=== PATIENT | male | born 1955 | race Caucasian/White ===

== ENCOUNTER 2018-12-23 09:05 | Emergency (ER) | payer OTHER, SELFPAY ==
[~2018-12-23] VITALS: Ht 177.8 cm; Wt 68.2 kg
[~2018-12-23 09:05] MED LIST: AZIT-12 PO; PRED20TA PO
--- NOTE | 2018-12-23 10:16 | REP ---
Clinical: Trauma. Technique: AP, lateral, bilateral oblique views left hand . Findings: The osseous structures and joint spaces are intact and normal. There is no evidence for acute fracture or dislocation. Surrounding soft tissues are unremarkable. No subcutaneous emphysema or radiodense foreign body. Impression: Generalized age-related changes. No acute fracture or dislocation. Electronically Signed by David Bennett MD 12/23/2018 10:08 A
[2018-12-23] MEDS ORDERED: CLEO300C2 PO (10:19)
[2018-12-23 10:33] VITALS: BP 136/72
== END 2018-12-23 10:35 | disposition home or self-care (01) ==
LOC: M ED 09:05
DX: S60.512A Abrasion of left hand, initial encounter (principal); L08.9 Local infection of the skin and subcutaneous tissue, unspecified; W00.0XXA Fall on same level due to ice and snow, initial encounter; Y92.098 Other place in other non-institutional residence as the place of occurrence of the external cause; F17.200 Nicotine dependence, unspecified, uncomplicated

== ENCOUNTER 2019-03-26 23:34 | Emergency (ER) | payer OTHER ==
[~2019-03-26 23:34] MED LIST changes: +CLEO300C2 PO
--- NOTE | 2019-03-27 00:59 | REPVR ---
EXAM: CT Head Without Contrast EXAM DATE/TIME: 03/26/2019 11:53 PM CLINICAL HISTORY: 63 years old, male; Signs and symptoms; Altered mental status/memory loss; Confusion or disorientation; Additional info: AMS TECHNIQUE: Imaging protocol: Axial computed tomography images of the head without contrast. Radiation optimization: All CT scans at this facility use at least one of these dose optimization techniques: automated exposure control; mA and/or kV adjustment per patient size (includes targeted exams where dose is matched to clinical indication); or iterative reconstruction. COMPARISON: No relevant prior studies available. FINDINGS: Brain: No CT evidence of acute intracranial hemorrhage or acute territorial infarction. No significant mass effect or midline shift. Basal cisterns patent. Ventricles: Normal in size and configuration. Bones/joints: No acute osseous abnormality. Sinuses: Moderate polypoid right maxillary sinus mucosal thickening. Mild ethmoid, left maxillary and left sphenoid sinus mucosal thickening. Mastoid air cells: Grossly unremarkable. Soft tissues: Grossly unremarkable. IMPRESSION: 1. No CT evidence of acute intracranial pathology. 2. Additional findings, as above. Electronically signed by: Branden Martinez On 03/27/2019 00:58:34 AM
--- NOTE | 2019-03-27 01:02 | REPVR ---
EXAM: CT Cervical Spine Without Contrast EXAM DATE/TIME: 03/26/2019 11:53 PM CLINICAL HISTORY: 63 years old, male; Injury or trauma; Fall; Initial encounter; Blunt trauma; Additional info: AMS TECHNIQUE: Imaging protocol: Axial computed tomography images of the cervical spine without contrast. Coronal and sagittal reformatted images were created and reviewed. Radiation optimization: All CT scans at this facility use at least one of these dose optimization techniques: automated exposure control; mA and/or kV adjustment per patient size (includes targeted exams where dose is matched to clinical indication); or iterative reconstruction. COMPARISON: No relevant prior studies available. FINDINGS: Vertebrae: Osteopenia. Straightening of the normal cervical lordosis. Mild dextroscoliosis. Alignment anatomic. Congenital nonunion of the C1 posterior arch. No CT evidence of acute fracture, dislocation or subluxation. Vertebral body heights maintained. Discs/Spinal canal/Neural foramina: Mild multilevel degenerative changes, characterized by disc space narrowing, osteophytosis and uncovertebral and facet joint hypertrophy. Mild multilevel spinal canal and neural foraminal narrowing. Soft tissues: Grossly unremarkable. Lungs: Mild biapical emphysematous changes. IMPRESSION: 1. No CT evidence of acute cervical spine traumatic injury. 2. Additional findings, as above. Electronically signed by: Branden Martinez On 03/27/2019 01:01:57 AM
[2019-03-27 01:15] VITALS: BP 123/77
== END 2019-03-27 01:36 | disposition left against medical advice (07) ==
LOC: M ED 23:34
DX: F10.120 Alcohol abuse with intoxication, uncomplicated (principal); F17.210 Nicotine dependence, cigarettes, uncomplicated
CPT/HCPCS: 36415; 70450; 72125; 99284; G0480

== ENCOUNTER 2020-08-01 20:43 | Inpatient (IN) | payer MEDICAID, OTHER, SELFPAY ==
[~2020-08-01] VITALS: Ht 170.2 cm; Wt 63.6 kg
[2020-08-01 22:28] LABS: HEMATOCRIT 37.6 % (42.0-52.0); HEMOGLOBIN 13.1 g/dl (13.5-17.5); LYMPH # 1.3 10^3/uL (1.5-5.0); LYMPH % 45.1 % (24.0-44.0); MEAN CORPUSCULAR HEMOGLOBIN 32.9 pg (27.0-33.0); MEAN CORPUSCULAR HGB CONC 34.8 g/dl (32.0-36.5); MEAN CORPUSCULAR VOLUME 94.5 fl (80.0-96.0); MONO # 0.3 10^3/uL (0.0-0.8); MONO % 10.8 % (0.0-5.0); NEUTROPHILS # 1.2 10^3/uL (1.5-8.5); NEUTROPHILS % 41.4 % (36.0-66.0); PLATELET COUNT, AUTOMATED 148 10^3/uL (150-450); RED BLOOD COUNT 3.98 10^6/uL (4.30-6.10)
--- NOTE | 2020-08-01 22:33 | REPVR ---
PROCEDURE INFORMATION: Exam: XR Chest, 1 View Exam date and time: 08/01/2020 9:47 PM Age: 64 years old Clinical indication: Screening exam; Pre-operative exam; Other: Pre op; Additional info: Fall TECHNIQUE: Imaging protocol: XR of the chest Views: 1 view. COMPARISON: NE Chest, 2 view PA, Lat 06/02/2018 10:29 PM FINDINGS: Lungs: Unremarkable. No consolidation. Pleural space: Unremarkable. No pleural effusion. No pneumothorax. Heart/Mediastinum: Unremarkable. No cardiomegaly. Bones/joints: Unremarkable. IMPRESSION: No acute findings. Electronically signed by: Demar Kwon On 08/01/2020 22:32:53 PM
--- NOTE | 2020-08-01 22:34 | REPVR ---
PROCEDURE INFORMATION: Exam: XR Left Hip with Pelvis when Performed Exam date and time: 08/01/2020 9:21 PM Age: 64 years old Clinical indication: Hip pain; Left hip TECHNIQUE: Imaging protocol: XR Left hip with pelvis when performed. Views: 2 or 3 views. COMPARISON: No relevant prior studies available. FINDINGS: Bones/joints: Acute fracture of the left femoral neck. The femoral head remains in the acetabulum. Soft tissues: Unremarkable. IMPRESSION: Acute fracture of the left femoral neck. Electronically signed by: Demar Kwon On 08/01/2020 22:34:21 PM
[2020-08-01 22:56] LABS: ALBUMIN 3.8 GM/DL (3.2-5.2); ALT/SGPT 60 U/L (12-78); BILIRUBIN,DIRECT < 0.1 MG/DL (0.0-0.2); BILIRUBIN,TOTAL 0.3 MG/DL (0.2-1.0); ETHYL ALCOHOL (ETHANOL) 0.326 % (0.000-0.010); TOTAL PROTEIN 7.6 GM/DL (6.4-8.2)
[2020-08-01] MEDS ORDERED: MOM 30ML SUSPENSION UDC PO PRN (23:15)
--- NOTE | 2020-08-01 23:29 | HPEPDOC ---
[facility] Medical History & Physical Date of Admission Aug 01, 2020 Date of Service: Aug 01, 2020 History and Physical CHIEF COMPLAINT: Fall on hip HISTORY OF PRESENT ILLNESS: 64-year-old male history of hypertension is brought to the emergency department because he was intoxicated and tripped and fell on his hip on the sidewalk. Hip pelvis x-ray in the ED shows left femoral neck fracture. Dr. Pepper orthopedics p[employer] security consultant today was consulted and plans to take him to the OR in the morning. Patient states he is in 5 out of 10 discomfort around his left hip. Denies any pain elsewhere. Patient was seen in the ED he appeared to still be intoxicated and answered some questions but fairly poorly. He did tell me he has hypertension but denied any other past medical problems and states he doesn't take any medications nor fol low-up with a primary care doctor. He states he drinks alcohol every other day and sometimes a pack or 2 at a time. He states he gets the shakes when he stops drinking but has never been brought to the hospital because of alcohol withdrawal. PAST MEDICAL HISTORY: Hypertension PAST SURGICAL HISTORY: Denies any SOCIAL HISTORY: Denies use of any illicit drugs Smokes one pack per day of tobacco Drinks alcohol every other day sometimes 1-2 packs at a time currently intoxicated in the ED FAMILY HISTORY: Patient unaware of his family has any medical problems ALLERGIES: Please see below. REVIEW OF SYSTEMS: Many questions on ROS are limited because patient is intoxicated and does not answer many of the questions appropriately Constitutional: Admits he's just been drinking alcohol over the past few hours Eyes: No acute blurred vision HENT: No complaints of headache or sore throat Cadiovascular: No Chest pain or palpitations Pulm: No SOB or cough Gastrointestinal: No N/V, no abdominal pain. Genitourinary: Musculoskeletal: Left-sided hip pain but no other bony pain elsewhere Skin: No rash or jaundice Neurological: No weakness. HOME MEDICATIONS: Please see below. PHYSICAL EXAMINATION: Constitutional: Awake but appears to be intoxicated, in no apparent distress ENT: Sclera are clear. Mucosa is moist. Respiratory: Lungs CTA bilaterally. No respiratory distress. No use of accessory muscles. Cardiovascular: RRR S1 and S2 are normal, no murmur Gastrointestinal: Abdomen is soft, non distended, non tender, BS present. Musculoskeletal: No edema. Left hip was not examined due to pain. However patient appears comfortable Neurologic: No focal neurological deficit. Mental Status: A&O x3 Skin: Warm, dry LABORATORY DATA: See below. IMAGING: X-ray of hip/pelvis shows fracture of the left femoral neck MICROBIOLOGY: Please see below. ASSESSMENT/PLAN # Left femoral neck fracture: ortho consulted dr Pepper to take him to OR int he AM. NPO, coags for am. X-ray of hip/pelvis shows fracture of the left femoral neck. Pain control [place], morphine breakthrough. # ETOH abuse: currently intoxicated. Ativan PRN per ciwa protocol. thiamine, folic acid, MVI. Fall, seizure precautions. # HTN: started him on amlodipine. Pain control. Monitor and titrate. # DVT prophylaxis: SCDs for now for surgery. A Yousef Hospitalist Vital Signs Vital Signs Date Time Temp Pulse Resp B/P (MAP) Pulse Ox O2 Delivery O2 Flow Rate FiO2 08/01/20 21:12 98.2 78 15 175/81 (112) 97 Room Air Laboratory Data Labs 24H Laboratory Tests 2 08/01/20 22:03: Immature Granulocyte % (Auto) 0.7, Neutrophils (%) (Auto) 41.4, Lymphocytes (%) (Auto) 45.1H, Monocytes (%) (Auto) 10.8H, Eosinophils (%) (Auto) 1.0, Basophils (%) (Auto) 1.0, Neutrophils # (Auto) 1.2L, Lymphocytes # (Auto) 1.3L, Monocytes # (Auto) 0.3, Eosinophils # (Auto) 0.0, Basophils # (Auto) 0.0, Nucleated Red Blood Cells % (auto) 0.0, Total Bilirubin 0.3, Direct Bilirubin < 0.1, Aspartate Amino Transf (AST/SGOT) 66H, Alanine Aminotransferase (ALT/SGPT) 60, Alkaline Phosphatase 82, Total Protein 7.6, Albumin 3.8, Albumin/Globulin Ratio 1.0, Ethyl Alcohol Level 0.326H, Coronavirus (COVID-19)(PCR) NEGATIVE 08/01/20 22:11: POC Glucose (Misc Panel) 76, POC Sodium (Misc Panel) 125L, POC Potassium (Misc Panel) 5.3H, POC Chloride (Misc Panel) 90L, POC Total CO2 (Misc Panel) 24.0, POC Blood Urea Nitrogen (Misc Panel 3L, POC Ionized Calcium (Misc Panel) 3.8L, POC Creatinine (Misc Panel) 1.1, POC Hematocrit (Misc Panel) 43.0 CBC/BMP Laboratory Tests 08/01/20 22:03 Home Medications No Active Prescriptions or Reported Meds Allergies Coded Allergies: No Known Allergies (Unverified , 06/02/18) A-FIB/CHADSVASC A-FIB History Current/History of A-Fib/PAF?: No ALAINA THIBODEAUX MD Aug 01, 2020 23:13
[2020-08-01] MEDS ORDERED: LORazepam 2 MG TAB PO PRN (23:30)
[2020-08-01] MEDS ORDERED: amLODIPine 5 MG TAB PO ONE (23:30)
[2020-08-01] MEDS ORDERED: SOD POLYSTYRENE SULFONATE SUSP 15 GM/60 ML UD PO ONE (23:45)
[2020-08-02] VITALS (10 sets, daily range): BP systolic 118–165; BP diastolic 70–86
[2020-08-02] MEDS: MORPHINE 2 MG/ML 1ML VIAL (J2270) IV PRN ×3 (01:26→12:42)
[2020-08-02] MEDS: THIAMINE 100 MG TAB PO SCH ×3 (01:27→21:49)
[2020-08-02] MEDS: NS 1,000 ML IV SCH ×2 (01:43→09:03)
[2020-08-02 05:55] LABS: HEMATOCRIT 36.1 % (42.0-52.0); HEMOGLOBIN 12.6 g/dl (13.5-17.5); MEAN CORPUSCULAR HGB CONC 34.9 g/dl (32.0-36.5); MEAN CORPUSCULAR VOLUME 94.5 fl (80.0-96.0); PLATELET COUNT, AUTOMATED 144 10^3/uL (150-450); RED BLOOD COUNT 3.82 10^6/uL (4.30-6.10); WHITE BLOOD COUNT 4.7 10^3/uL (4.0-10.0)
[2020-08-02] MEDS ORDERED: ceFAZolin SOD 2 GM in IV 1 EA IV SCH (06:00)
[2020-08-02 06:05] LABS: INR 0.96
[2020-08-02 06:22] LABS: ALBUMIN 3.5 GM/DL (3.2-5.2); ALT/SGPT 58 U/L (12-78); BILIRUBIN,TOTAL 0.3 MG/DL (0.2-1.0); BLOOD UREA NITROGEN 5 MG/DL (7-18); CALCIUM LEVEL 8.3 MG/DL (8.8-10.2); CARBON DIOXIDE LEVEL 23 MEQ/L (21-32); CHLORIDE LEVEL 95 MEQ/L (98-107); CREATININE FOR GFR 0.58 MG/DL (0.70-1.30); ETHYL ALCOHOL (ETHANOL) 0.168 % (0.000-0.010); GLOMERULAR FILTRATION RATE > 60.0 (>49); GLUCOSE, FASTING 70 MG/DL (70-100); MAGNESIUM LEVEL 2.1 MG/DL (1.8-2.4); POTASSIUM SERUM 4.3 MEQ/L (3.5-5.1); SODIUM LEVEL 128 MEQ/L (136-145); TOTAL PROTEIN 7.2 GM/DL (6.4-8.2)
[2020-08-02] MEDS ORDERED: OLANZapine INTRAMUSCULAR 10MG VIAL IM PRN (07:45)
[2020-08-02] MEDS: OXAZEPAM 15 MG CAP PO SCH ×3 (09:03→21:49)
[2020-08-02] MEDS: MULTIVITAMINS/MINERALS THERAP 1 TAB PO SCH (09:03)
[2020-08-02] MEDS: FOLIC ACID 1 MG TAB PO SCH (09:03)
[2020-08-02] MEDS: amLODIPine 5 MG TAB PO SCH (09:03)
--- NOTE | 2020-08-02 11:05 | IPNPDOC ---
Text Note Date of Service The patient was seen on 08/02/20. NOTE Subjective: Patient is sober now with no signs of withdrawal. Does not have any complaints at present except for hip pain and spasm on minor movement. PHYSICAL EXAMINATION: Vitals: As Below. Constitutional: Awake but appears to be intoxicated, in no apparent distress HEENT: Sclera are clear. Mucosa is moist. NC/AT Respiratory: Lungs CTA bilaterally. No respiratory distress. No use of accessory muscles. Cardiovascular: RRR S1 and S2 are normal, no murmur/ rub or gallop Gastrointestinal: Abdomen is soft, non distended, non tender, BS present. Musculoskeletal: No edema. Left hip was not examined due to pain. However patient appears comfortable, left leg externally rotated Neurologic: No focal neurological deficit. Mental Status: A&O x3 Skin: Warm, dry LABORATORY DATA: See below. IMAGING: X-ray of hip/pelvis shows fracture of the left femoral neck ASSESSMENT/PLAN 64-year-old male history of hypertension is brought to the emergency department because he was intoxicated and tripped and fell on his hip on the sidewalk. Hip pelvis x-ray in the ED shows left femoral neck fracture. Medical clearance: EKG normal sinus rhythm. Alcohol level still at 0.168 will recheck in the pm. No cardiac history, no chf, no CVA/TIA history, No CKD, no DM. Pateitn is low cardiac risk for the proposed procedure. Patient medically optimized for the procedure provided anesthesia is OK with his alcohol level. Left femoral neck fracture: ortho consulted dr Pepper to take him to OR today NPO, Pain control [place], morphine breakthrough. Hyponatremia Beer potomania, improving with NS ETOH abuse: Ativan and olanzapine PRN , ciwa protocol. thiamine, folic acid, MVI. Fall, seizure precautions. HTN: started on amlodipine. DVT prophylaxis SCDs for now for surgery. VS,Fishbone, I+O VS, Fishbone, I+O Laboratory Tests 08/01/20 22:03 08/02/20 05:26 Vital Signs Date Time Temp Pulse Resp B/P (MAP) Pulse Ox O2 Delivery O2 Flow Rate FiO2 08/02/20 09:03 89 138/69 08/02/20 06:48 16 96 Room Air 08/02/20 05:49 98.7 PENG PERRY MD Aug 02, 2020 11:05
[2020-08-02] MEDS: MAGNESIUM OXIDE 400 MG TAB (MAG-OX) PO SCH (11:56)
[2020-08-02] MEDS: NORCO, ANEXSIA 5/325MG TABLET (HYDROcodone/ACETAMINOPHEN) PO PRN ×2 (15:34→21:49)
[2020-08-02] MEDS ORDERED: propofoL 200 MG/20 ML VIAL As Ordered ONE (15:47)
[2020-08-02] MEDS ORDERED: dexameTHASONE 4 MG/ML 1ML VIAL (J1100 PER 1MG) As Ordered ONE (15:47)
[2020-08-02] MEDS ORDERED: ACETAMINOPHEN 1000MG 100ML IV BTL (OFIRMEV) (J0131 PER 10MG) As Ordered ONE (15:47)
[2020-08-02] MEDS ORDERED: ROCURONIUM BROMIDE 50 MG/5 ML VIAL As Ordered ONE (15:47)
[2020-08-02] MEDS ORDERED: ONDANSETRON 4MG/2ML VIAL As Ordered ONE (15:47)
[2020-08-02] MEDS ORDERED: LIDOCAINE 2% 100MG/5ML SDV (FOR ANES.) As Ordered ONE (15:47)
[2020-08-02] MEDS ORDERED: SUGAMMADEX SODIUM 500 MG/5 ML VIAL (BRIDION) As Ordered ONE (15:47)
[2020-08-02] MEDS ORDERED: KETOROLAC 60MG 2ML VIAL As Ordered ONE (15:47)
[2020-08-02] MEDS ORDERED: MIDAZOLAM INJ 2MG/2ML VIAL (J2250 PER 1MG) As Ordered ONE (15:48)
[2020-08-02] MEDS ORDERED: fentaNYL 100 MCG/2 ML INJECTION (J3010) As Ordered ONE ×3 (15:48→19:22)
[2020-08-02] MEDS ORDERED: LIDOCAINE 5% OINT 30 GM As Ordered ONE (15:57)
[2020-08-02] MEDS ORDERED: ceFAZolin 1GM VIAL (J0690 PER 500MG) As Ordered ONE ×3 (16:44→17:46)
[2020-08-02] MEDS ORDERED: EPINEPHrine INJ 1 MG/ML 1ML AMP As Ordered ONE (16:46)
[2020-08-02] MEDS ORDERED: TRANEXAMIC ACID 100 MG/ML 10ML VIAL As Ordered ONE (17:52)
[2020-08-02] MEDS ORDERED: HYDROmorphone HCL 2 MG/ML 1ML VIAL (J1170) As Ordered ONE (18:04)
[2020-08-02] MEDS ORDERED: BUPIVACAINE HCL 0.25% 30ML VIAL As Ordered ONE (18:39)
[2020-08-02] MEDS ORDERED: LABETALOL 100MG/20ML VIAL As Ordered ONE (19:22)
--- NOTE | 2020-08-02 19:35 | ECGEPIP ---
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
[2020-08-02] MEDS ORDERED: oxyCODONE 5MG TAB As Ordered ONE (19:47)
[2020-08-02] MEDS ORDERED: ONDANSETRON 4MG/2ML VIAL IV PRN (20:45)
[2020-08-02] MEDS ORDERED: LR 1,000 ML IV SCH (20:45)
[2020-08-03] VITALS (7 sets, daily range): BP systolic 110–141; BP diastolic 59–78
[2020-08-03] MEDS: ceFAZolin SOD 2 GM in IV 1 EA IV SCH ×2 (01:15→09:27)
[2020-08-03] MEDS: OXAZEPAM 15 MG CAP PO SCH ×3 (05:12→20:29)
[2020-08-03] MEDS: NORCO, ANEXSIA 5/325MG TABLET (HYDROcodone/ACETAMINOPHEN) PO PRN (05:13)
[2020-08-03 06:14] LABS: HEMATOCRIT 31.2 % (42.0-52.0); HEMOGLOBIN 10.9 g/dl (13.5-17.5); LYMPH # 0.3 10^3/uL (1.5-5.0); LYMPH % 6.4 % (24.0-44.0); MEAN CORPUSCULAR HEMOGLOBIN 33.7 pg (27.0-33.0); MEAN CORPUSCULAR HGB CONC 34.9 g/dl (32.0-36.5); MEAN CORPUSCULAR VOLUME 96.6 fl (80.0-96.0); MONO # 0.4 10^3/uL (0.0-0.8); MONO % 7.4 % (0.0-5.0); NEUTROPHILS # 4.4 10^3/uL (1.5-8.5); NEUTROPHILS % 85.8 % (36.0-66.0); PLATELET COUNT, AUTOMATED 118 10^3/uL (150-450); RED BLOOD COUNT 3.23 10^6/uL (4.30-6.10); WHITE BLOOD COUNT 5.1 10^3/uL (4.0-10.0)
[2020-08-03 06:48] LABS: BLOOD UREA NITROGEN 10 MG/DL (7-18); CALCIUM LEVEL 8.5 MG/DL (8.8-10.2); CARBON DIOXIDE LEVEL 28 MEQ/L (21-32); CHLORIDE LEVEL 99 MEQ/L (98-107); CREATININE FOR GFR 0.74 MG/DL (0.70-1.30); GLOMERULAR FILTRATION RATE > 60.0 (>49); GLUCOSE, FASTING 197 MG/DL (70-100); SODIUM LEVEL 131 MEQ/L (136-145)
[2020-08-03] MEDS: MAGNESIUM OXIDE 400 MG TAB (MAG-OX) PO SCH (09:25)
[2020-08-03] MEDS: THIAMINE 100 MG TAB PO SCH ×2 (09:25→20:29)
[2020-08-03] MEDS: amLODIPine 5 MG TAB PO SCH (09:25)
[2020-08-03] MEDS: FOLIC ACID 1 MG TAB PO SCH (09:25)
[2020-08-03] MEDS: MULTIVITAMINS/MINERALS THERAP 1 TAB PO SCH (09:25)
[2020-08-03] MEDS: MIRALAX *UNIT DOSE* 17GM PACKET PO SCH (09:26)
--- NOTE | 2020-08-03 11:04 | IPNPDOC ---
Text Note Date of Service The patient was seen on 08/03/20. NOTE Subjective: Patient awake and aler, no signs of withdrawal, working with PT, Had Surgery yesterday. PHYSICAL EXAMINATION: Vitals: As Below. Constitutional: Sitting by the side of bed in no distress. HEENT: Sclera are clear. Mucosa is moist. NC/AT Respiratory: Lungs CTA bilaterally. No respiratory distress. No use of accessory muscles. Cardiovascular: RRR S1 and S2 are normal, no murmur/ rub or gallop Gastrointestinal: Abdomen is soft, non distended, non tender, BS present. Musculoskeletal: No edema. Neurologic: No focal neurological deficit. Mental Status: A&O x3 Skin: Warm, dry LABORATORY DATA: See below. IMAGING: X-ray of hip/pelvis shows fracture of the left femoral neck ASSESSMENT/PLAN 64-year-old male history of hypertension is brought to the emergency department because he was intoxicated and tripped and fell on his hip on the sidewalk. Hip pelvis x-ray in the ED shows left femoral neck fracture. Left femoral neck fracture: s/p mechanical fall in drunken state s/p ORIF on 08/02/20 Hyponatremia Beer potomania, improving ETOH abuse: Ativan and olanzapine PRN , ciwa protocol. thiamine, folic acid, MVI. Fall, seizure precautions. Serax. HTN: started on amlodipine. Smoking counselled about quitting offered nicotine patch to help DVT prophylaxis SCDs for now for surgery. VS,Fishbone, I+O VS, Fishbone, I+O Laboratory Tests 08/03/20 05:47 Vital Signs Date Time Temp Pulse Resp B/P (MAP) Pulse Ox O2 Delivery O2 Flow Rate FiO2 08/03/20 09:25 60 138/78 08/03/20 05:43 16 96 Nasal Cannula 2.0 08/03/20 02:00 98.2 I&O- Last 24 Hours up to 6 AM 08/03/20 06:00 Intake Total 1530 ml Output Total 600 ml Balance 930 ml PENG PERRY MD Aug 03, 2020 11:04
[2020-08-03] MEDS: NICOTINE 14 MG/24 HR TRANSDERMAL TD SCH (12:00)
[2020-08-03] MEDS: ACETAMINOPHEN TAB 650MG DOSE (2X325MG) PO PRN ×2 (14:09→20:29)
[2020-08-03] MEDS: RIVAROXABAN 10 MG TAB (XARELTO) PO SCH (17:25)
[2020-08-03] MEDS: PERCOCET 5MG/325MG TAB PO PRN (18:40)
[2020-08-04] MEDS: PERCOCET 5MG/325MG TAB PO PRN ×5 (00:06→18:03)
[2020-08-04 05:19] LABS: BASO % 0.2 % (0.0-1.0); EOS % 0.2 % (0.0-3.0); HEMATOCRIT 28.1 % (42.0-52.0); HEMOGLOBIN 9.6 g/dl (13.5-17.5); LYMPH # 0.9 10^3/uL (1.5-5.0); LYMPH % 16.6 % (24.0-44.0); MEAN CORPUSCULAR HEMOGLOBIN 33.3 pg (27.0-33.0); MEAN CORPUSCULAR HGB CONC 34.2 g/dl (32.0-36.5); MEAN CORPUSCULAR VOLUME 97.6 fl (80.0-96.0); MONO # 0.4 10^3/uL (0.0-0.8); MONO % 7.2 % (0.0-5.0); NEUTROPHILS # 4.2 10^3/uL (1.5-8.5); NEUTROPHILS % 75.3 % (36.0-66.0); PLATELET COUNT, AUTOMATED 104 10^3/uL (150-450); RED BLOOD COUNT 2.88 10^6/uL (4.30-6.10); WHITE BLOOD COUNT 5.5 10^3/uL (4.0-10.0)
[2020-08-04] MEDS: OXAZEPAM 15 MG CAP PO SCH ×3 (05:24→21:03)
[2020-08-04 05:38] LABS: BLOOD UREA NITROGEN 5 MG/DL (7-18); CALCIUM LEVEL 8.1 MG/DL (8.8-10.2); CARBON DIOXIDE LEVEL 29 MEQ/L (21-32); CHLORIDE LEVEL 100 MEQ/L (98-107); CREATININE FOR GFR 0.58 MG/DL (0.70-1.30); GLOMERULAR FILTRATION RATE > 60.0 (>49); GLUCOSE, FASTING 109 MG/DL (70-100); POTASSIUM SERUM 3.2 MEQ/L (3.5-5.1); SODIUM LEVEL 134 MEQ/L (136-145)
[2020-08-04 06:00] VITALS: BP_SYST 132; BP_SYST 134; BP_DIAS 62; BP_DIAS 68
[2020-08-04 08:11] LABS: MAGNESIUM LEVEL 1.8 MG/DL (1.8-2.4)
[2020-08-04] MEDS: MAGNESIUM OXIDE 400 MG TAB (MAG-OX) PO SCH (08:17)
[2020-08-04] MEDS: MIRALAX *UNIT DOSE* 17GM PACKET PO SCH (08:17)
[2020-08-04] MEDS: MULTIVITAMINS/MINERALS THERAP 1 TAB PO SCH (08:17)
[2020-08-04] MEDS: THIAMINE 100 MG TAB PO SCH (08:17)
[2020-08-04] MEDS: FOLIC ACID 1 MG TAB PO SCH (08:17)
[2020-08-04] MEDS: amLODIPine 5 MG TAB PO SCH (08:18)
[2020-08-04] MEDS: NICOTINE 14 MG/24 HR TRANSDERMAL TD SCH (08:31)
[2020-08-04] MEDS ORDERED: POTASSIUM CHLORIDE 10 MEQ SR TABLET PO ONE (09:00)
--- NOTE | 2020-08-04 11:22 | IPNPDOC ---
Text Note Date of Service The patient was seen on 08/04/20. NOTE Subjective: Patient awake and alert, no signs of withdrawal. Likes to sleep in the morning says does not sleep at night. PHYSICAL EXAMINATION: Vitals: As Below. Constitutional: Sitting by the side of bed in no distress. HEENT: Sclera are clear. Mucosa is moist. NC/AT Respiratory: Lungs CTA bilaterally. No respiratory distress. No use of accessory muscles. Cardiovascular: RRR S1 and S2 are normal, no murmur/ rub or gallop Gastrointestinal: Abdomen is soft, non distended, non tender, BS present. Musculoskeletal: No edema. Neurologic: No focal neurological deficit. Mental Status: A&O x3 Skin: Warm, dry LABORATORY DATA: See below. IMAGING: X-ray of hip/pelvis shows fracture of the left femoral neck ASSESSMENT/PLAN 64-year-old male history of hypertension is brought to the emergency department because he was intoxicated and tripped and fell on his hip on the sidewalk. Hip pelvis x-ray in the ED shows left femoral neck fracture. Left femoral neck fracture: s/p mechanical fall in drunken state s/p ORIF on 08/02/20 Hyponatremia Beer potomania, improving Hypokalemia replaced ETOH abuse: Ativan and olanzapine PRN , ciwa protocol. thiamine, folic acid, MVI. Fall, seizure precautions. Serax. HTN: started on amlodipine. Smoking counselled about quitting offered nicotine patch to help DVT prophylaxis xarelto Dispo: Continue to Rehab. VS,Fishbone, I+O VS, Fishbone, I+O Laboratory Tests 08/04/20 04:47 Vital Signs Date Time Temp Pulse Resp B/P (MAP) Pulse Ox O2 Delivery O2 Flow Rate FiO2 08/04/20 09:01 16 08/04/20 08:18 85 134/68 08/04/20 06:00 99.2 95 Room Air 08/03/20 09:00 2.0 I&O- Last 24 Hours up to 6 AM 08/04/20 06:00 Intake Total 2390 ml Output Total 1700 ml Balance 690 ml PENG PERRY MD Aug 04, 2020 11:22
[2020-08-04 14:00] VITALS: BP 122/68
[2020-08-04 15:00] VITALS: BP 122/68
[2020-08-04] MEDS: RIVAROXABAN 10 MG TAB (XARELTO) PO SCH (18:03)
[2020-08-04] MEDS: ACETAMINOPHEN TAB 650MG DOSE (2X325MG) PO PRN (21:03)
[2020-08-04 22:00] VITALS: BP 138/77
[2020-08-05] MEDS: PERCOCET 5MG/325MG TAB PO PRN ×5 (01:14→18:21)
[2020-08-05] MEDS: OXAZEPAM 15 MG CAP PO SCH ×2 (05:11→18:21)
[2020-08-05 05:46] LABS: BASO % 0.3 % (0.0-1.0); EOS # 0.1 10^3/uL (0.0-0.5); EOS % 0.8 % (0.0-3.0); HEMATOCRIT 29.6 % (42.0-52.0); HEMOGLOBIN 9.8 g/dl (13.5-17.5); LYMPH # 0.8 10^3/uL (1.5-5.0); LYMPH % 12.9 % (24.0-44.0); MEAN CORPUSCULAR HEMOGLOBIN 33.1 pg (27.0-33.0); MEAN CORPUSCULAR HGB CONC 33.1 g/dl (32.0-36.5); MONO # 0.4 10^3/uL (0.0-0.8); MONO % 5.5 % (0.0-5.0); NEUTROPHILS # 5.1 10^3/uL (1.5-8.5); NEUTROPHILS % 79.9 % (36.0-66.0); PLATELET COUNT, AUTOMATED 111 10^3/uL (150-450); RED BLOOD COUNT 2.96 10^6/uL (4.30-6.10); WHITE BLOOD COUNT 6.4 10^3/uL (4.0-10.0)
[2020-08-05 05:56] LABS: BLOOD UREA NITROGEN 7 MG/DL (7-18); CALCIUM LEVEL 8.3 MG/DL (8.8-10.2); CARBON DIOXIDE LEVEL 30 MEQ/L (21-32); CHLORIDE LEVEL 100 MEQ/L (98-107); CREATININE FOR GFR 0.56 MG/DL (0.70-1.30); GLOMERULAR FILTRATION RATE > 60.0 (>49); GLUCOSE, FASTING 101 MG/DL (70-100); POTASSIUM SERUM 3.5 MEQ/L (3.5-5.1); SODIUM LEVEL 133 MEQ/L (136-145)
[2020-08-05 06:00] VITALS: BP 140/76
--- NOTE | 2020-08-05 08:04 | IPNPDOC ---
Text Note Date of Service The patient was seen on 08/05/20. NOTE Subjective: Patient awake and alert, no signs of withdrawal. Working with PT. PHYSICAL EXAMINATION: Vitals: As Below. Constitutional: Sitting by the side of bed in no distress. HEENT: Sclera are clear. Mucosa is moist. NC/AT Respiratory: Lungs CTA bilaterally. No respiratory distress. No use of accessory muscles. Cardiovascular: RRR S1 and S2 are normal, no murmur/ rub or gallop Gastrointestinal: Abdomen is soft, non distended, non tender, BS present. Musculoskeletal: No edema. Neurologic: No focal neurological deficit. Mental Status: A&O x3 Skin: Warm, dry LABORATORY DATA: See below. IMAGING: X-ray of hip/pelvis shows fracture of the left femoral neck ASSESSMENT/PLAN 64-year-old male history of hypertension is brought to the emergency department because he was intoxicated and tripped and fell on his hip on the sidewalk. Hip pelvis x-ray in the ED shows left femoral neck fracture. Left femoral neck fracture: s/p mechanical fall in drunken state s/p ORIF on 08/02/20 Hyponatremia Beer potomania, improving Hypokalemia replaced ETOH abuse: Ativan and olanzapine PRN , ciwa protocol. thiamine, folic acid, MVI. Fall, seizure precautions. Serax. HTN: started on amlodipine. Smoking counselled about quitting offered nicotine patch to help DVT prophylaxis xarelto Dispo: Continue to Rehab. VS,Fishbone, I+O VS, Fishbone, I+O Laboratory Tests 08/05/20 05:18 Vital Signs Date Time Temp Pulse Resp B/P (MAP) Pulse Ox O2 Delivery O2 Flow Rate FiO2 08/05/20 06:00 100.2 87 20 140/76 (97) 97 Room Air 08/03/20 09:00 2.0 I&O- Last 24 Hours up to 6 AM 08/05/20 06:00 Intake Total 4330 ml Output Total 1600 ml Balance 2730 ml PENG PERRY MD Aug 05, 2020 08:04
[2020-08-05] MEDS ORDERED: POTASSIUM CHLORIDE 10 MEQ SR TABLET PO ONE (09:00)
[2020-08-05] MEDS: NICOTINE 14 MG/24 HR TRANSDERMAL TD SCH (10:03)
[2020-08-05] MEDS: MIRALAX *UNIT DOSE* 17GM PACKET PO SCH (10:03)
[2020-08-05] MEDS: MULTIVITAMINS/MINERALS THERAP 1 TAB PO SCH (10:04)
[2020-08-05] MEDS: amLODIPine 5 MG TAB PO SCH (10:04)
[2020-08-05] MEDS: FOLIC ACID 1 MG TAB PO SCH (10:05)
[2020-08-05] MEDS: MAGNESIUM OXIDE 400 MG TAB (MAG-OX) PO SCH (10:05)
[2020-08-05 14:00] VITALS: BP 124/73
--- NOTE | 2020-08-05 17:22 | CR ---
DATE OF CONSULTATION: 08/01/2020 CHIEF COMPLAINT: Left femoral neck fracture. HISTORY OF PRESENT ILLNESS: This 64-year-old man had a ground-level fall on the pavement. He was unable to ambulate afterward. There was no head injury, loss of consciousness, or other injuries. He was admitted by the hospitalist late last evening. Made nothing by mouth in preparation for surgery. MEDICAL HISTORY: None. ALLERGIES: No known drug allergies. MEDICATIONS: None. SURGICAL HISTORY: None. SOCIAL HISTORY: He smokes half a pack a day of cigarettes. He is retired. He has no hobbies. He lives alone in an apartment in [place]. 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 PHYSICAL EXAMINATION: He is a well appearing 62-year-old man. He has sequelae of long-term smoking. He is alert and oriented times three. He communicates appropriately. He states that he only has pain in his left hip. No obvious deformity, although leg is a little bit externally rotated. No pain at the knee, although there is a small superficial abrasion. Normal sensation and motor function of the foot. Foot is warm and well perfused. Good pedal pulses. He can wiggle his toes and dorsiflex and plantarflex the foot. Radiographs were obtained of the left hip and pelvis. This shows a displaced left femoral neck fracture. There is no obvious osteoarthritis or other injuries. COVID negative. Alcohol level has trended down. ASSESSMENT AND PLAN: A 64-year-old man has a displaced femoral neck fracture. I recommend surgical intervention for this. Typical treatment for displaced femoral neck fractures is hemiarthroplasty. Other options are total hip arthroplasty, although he has minimal arthritis. No antecedent hip pain, so we will go a head with left hip hemiarthroplasty. We talked about the pros, cons, risks, benefits of nonsurgical management versus surgical intervention, which include, but not limited to, infection, pain, stiffness, weakness, damage to surrounding structures, neurovascular injury, instability, wear, long-term risk of osteoarthritis, fracture, wear of the components, bony disassociation, anesthetic complications, blood clots, , limp, other risks not listed as well as need for further surgery or operations. He wished to go ahead. We marked the left lower extremity. He signed the consent form for surgery as well as possible need for blood products. We will make him nothing by mouth in preparation for surgery. I have booked the case with operating room (OR), and ideally this will be done tonight or tomorrow in the afternoon pending OR availability. He understands and had no further questions. STEPHAN
[2020-08-05] MEDS: RIVAROXABAN 10 MG TAB (XARELTO) PO SCH (18:21)
[2020-08-05 22:00] VITALS: BP 132/73
[2020-08-06] MEDS: ACETAMINOPHEN TAB 650MG DOSE (2X325MG) PO PRN ×3 (01:32→15:31)
[2020-08-06] MEDS: OXAZEPAM 15 MG CAP PO SCH ×2 (05:17→20:22)
[2020-08-06 06:00] VITALS: BP 124/71
[2020-08-06 07:30] LABS: BASO % 0.3 % (0.0-1.0); EOS # 0.1 10^3/uL (0.0-0.5); EOS % 1.6 % (0.0-3.0); HEMATOCRIT 29.6 % (42.0-52.0); HEMOGLOBIN 9.9 g/dl (13.5-17.5); LYMPH # 0.9 10^3/uL (1.5-5.0); LYMPH % 14.2 % (24.0-44.0); MEAN CORPUSCULAR HEMOGLOBIN 33.8 pg (27.0-33.0); MEAN CORPUSCULAR HGB CONC 33.4 g/dl (32.0-36.5); MONO # 0.5 10^3/uL (0.0-0.8); MONO % 7.1 % (0.0-5.0); NEUTROPHILS # 4.8 10^3/uL (1.5-8.5); NEUTROPHILS % 76.2 % (36.0-66.0); PLATELET COUNT, AUTOMATED 144 10^3/uL (150-450); RED BLOOD COUNT 2.93 10^6/uL (4.30-6.10); WHITE BLOOD COUNT 6.3 10^3/uL (4.0-10.0)
--- NOTE | 2020-08-06 07:34 | IPN ---
DATE: 08/03/2020 CHIEF COMPLAINT: Postop day 1 left hip hemiarthroplasty. HISTORY OF PRESENT ILLNESS: This 62-year-old man had a displaced femoral neck fracture. Performed hemiarthroplasty yesterday evening. He is doing well today on the roca, [address] [place]. No concerns or complaints heard by the nursing staff. PHYSICAL EXAMINATION: This is well-appearing 62-year-old. Incision was clean and dry. Normal sensation and motor function of the foot. It is warm and well perfuse. Postop radiographs reviewed and appropriate. ASSESSMENT AND PLAN: This 62-year-old man will be mobilized, weightbearing as tolerated. Follow up in my office in two weeks time. The on-call surgeon of the weekend will round the patient, as well as my regular nurse practitioner. STEPHAN
[2020-08-06 07:50] LABS: BLOOD UREA NITROGEN 9 MG/DL (7-18); CALCIUM LEVEL 8.2 MG/DL (8.8-10.2); CARBON DIOXIDE LEVEL 28 MEQ/L (21-32); CHLORIDE LEVEL 100 MEQ/L (98-107); CREATININE FOR GFR 0.65 MG/DL (0.70-1.30); GLOMERULAR FILTRATION RATE > 60.0 (>49); GLUCOSE, FASTING 98 MG/DL (70-100); SODIUM LEVEL 133 MEQ/L (136-145)
[2020-08-06] MEDS: MULTIVITAMINS/MINERALS THERAP 1 TAB PO SCH (08:01)
[2020-08-06] MEDS: MAGNESIUM OXIDE 400 MG TAB (MAG-OX) PO SCH (08:01)
[2020-08-06] MEDS: FOLIC ACID 1 MG TAB PO SCH (08:01)
[2020-08-06] MEDS: NICOTINE 14 MG/24 HR TRANSDERMAL TD SCH (08:02)
[2020-08-06] MEDS: MIRALAX *UNIT DOSE* 17GM PACKET PO SCH (08:02)
[2020-08-06] MEDS: amLODIPine 5 MG TAB PO SCH (08:03)
--- NOTE | 2020-08-06 12:27 | IPNPDOC ---
Text Note Date of Service The patient was seen on 08/06/20. NOTE Subjective: Patient awake and alert, no signs of withdrawal. Working with PT. PHYSICAL EXAMINATION: Vitals: As Below. Constitutional: Sitting by the side of bed in no distress. HEENT: Sclera are clear. Mucosa is moist. NC/AT Respiratory: Lungs CTA bilaterally. No respiratory distress. No use of accessory muscles. Cardiovascular: RRR S1 and S2 are normal, no murmur/ rub or gallop Gastrointestinal: Abdomen is soft, non distended, non tender, BS present. Musculoskeletal: No edema. Neurologic: No focal neurological deficit. Mental Status: A&O x3 Skin: Warm, dry LABORATORY DATA: See below. IMAGING: X-ray of hip/pelvis shows fracture of the left femoral neck ASSESSMENT/PLAN 64-year-old male history of hypertension is brought to the emergency department because he was intoxicated and tripped and fell on his hip on the sidewalk. Hip pelvis x-ray in the ED shows left femoral neck fracture. Left femoral neck fracture: s/p mechanical fall in drunken state s/p ORIF on 08/02/20 Hyponatremia Beer potomania, improving Hypokalemia replaced ETOH abuse: Ativan and olanzapine PRN , ciwa protocol. thiamine, folic acid, MVI. Fall, seizure precautions. Serax. HTN: started on amlodipine. Smoking counselled about quitting offered nicotine patch to help DVT prophylaxis xarelto Dispo: Continue to Rehab. VS,Fishbone, I+O VS, Fishbone, I+O Laboratory Tests 08/06/20 07:02 Vital Signs Date Time Temp Pulse Resp B/P (MAP) Pulse Ox O2 Delivery O2 Flow Rate FiO2 08/06/20 08:03 96 115/69 08/06/20 06:00 98.3 18 96 Room Air 08/03/20 09:00 2.0 I&O- Last 24 Hours up to 6 AM 08/06/20 06:00 Intake Total 3880 ml Output Total 600 ml Balance 3280 ml PENG PERRY MD Aug 06, 2020 12:27
[2020-08-06] MEDS: PERCOCET 5MG/325MG TAB PO PRN ×2 (13:08→19:10)
[2020-08-06 13:21] VITALS: BP 138/73
[2020-08-06] MEDS: RIVAROXABAN 10 MG TAB (XARELTO) PO SCH (17:22)
[2020-08-06 22:00] VITALS: BP 124/71
[2020-08-07] MEDS: ACETAMINOPHEN TAB 650MG DOSE (2X325MG) PO PRN ×4 (01:41→21:28)
[2020-08-07 06:00] VITALS: BP 166/80
[2020-08-07] MEDS ORDERED: PERC5TAB12 PO (06:11)
[2020-08-07] MEDS ORDERED: XARE10TA PO (06:11)
[2020-08-07 06:40] LABS: BASO % 0.5 % (0.0-1.0); EOS # 0.1 10^3/uL (0.0-0.5); EOS % 1.6 % (0.0-3.0); HEMATOCRIT 27.1 % (42.0-52.0); HEMOGLOBIN 8.9 g/dl (13.5-17.5); LYMPH # 0.7 10^3/uL (1.5-5.0); LYMPH % 15.3 % (24.0-44.0); MEAN CORPUSCULAR HEMOGLOBIN 32.7 pg (27.0-33.0); MEAN CORPUSCULAR HGB CONC 32.8 g/dl (32.0-36.5); MEAN CORPUSCULAR VOLUME 99.6 fl (80.0-96.0); MONO # 0.5 10^3/uL (0.0-0.8); MONO % 10.5 % (0.0-5.0); NEUTROPHILS # 3.1 10^3/uL (1.5-8.5); NEUTROPHILS % 71.4 % (36.0-66.0); PLATELET COUNT, AUTOMATED 151 10^3/uL (150-450); RED BLOOD COUNT 2.72 10^6/uL (4.30-6.10); WHITE BLOOD COUNT 4.4 10^3/uL (4.0-10.0)
[2020-08-07 07:07] LABS: BLOOD UREA NITROGEN 10 MG/DL (7-18); CARBON DIOXIDE LEVEL 28 MEQ/L (21-32); CHLORIDE LEVEL 103 MEQ/L (98-107); GLOMERULAR FILTRATION RATE > 60.0 (>49); GLUCOSE, FASTING 95 MG/DL (70-100); POTASSIUM SERUM 3.5 MEQ/L (3.5-5.1); SODIUM LEVEL 137 MEQ/L (136-145)
[2020-08-07] MEDS: FOLIC ACID 1 MG TAB PO SCH (08:12)
[2020-08-07] MEDS: MULTIVITAMINS/MINERALS THERAP 1 TAB PO SCH (08:12)
[2020-08-07] MEDS: MAGNESIUM OXIDE 400 MG TAB (MAG-OX) PO SCH (08:13)
[2020-08-07] MEDS: NICOTINE 14 MG/24 HR TRANSDERMAL TD SCH (08:13)
[2020-08-07] MEDS: MIRALAX *UNIT DOSE* 17GM PACKET PO SCH (08:14)
[2020-08-07] MEDS: amLODIPine 5 MG TAB PO SCH (08:14)
--- NOTE | 2020-08-07 08:52 | REP ---
LEFT HIP: 2-VIEWS HISTORY: Postop. FINDINGS: AP and cross-table lateral views of the left hip demonstrate left hip hemiarthroplasty in good position. Periarticular soft tissue emphysema is seen. MTDD
--- NOTE | 2020-08-07 09:25 | RO ---
DATE OF OPERATION: 08/02/2020 PREOPERATIVE DIAGNOSIS: Left femoral neck fracture. POSTOPERATIVE DIAGNOSIS: Left femoral neck fracture. PLANNED PROCEDURE: Left hip hemiarthroplasty. PROCEDURE PERFORMED: Left hip hemiarthroplasty (cemented). SURGEON: Tim Pepper MD RENTAL CAR FERRY DRIVER: Christiano Sarah PA-C TYPE OF ANESTHETIC: General anesthetic. OPERATIVE PREAMBLE: This 62-year-old man had a mechanical fall. He sustained a displaced left femoral neck fracture. We discussed the pros, cons, risks, benefits going ahead with surgery. I saw him in preoperative holding and reiterated the risks and marked the left lower extremity and proceeded to surgery. OPERATIVE REPORT: The patient was brought to the operating theater. He was placed supine on the operating room table. General anesthesia was induced. 2 gm of IV Ancef was administered as well as 2 gm IV Tranexamic Acid. The patient was placed left lateral decubitus with the aid of Powers hip positioner. All bony prominences were padded. Axillary roll was used. Bear hugger was employed. SCDs were used on down leg. The limb was prepped and draped in usual sterile fashion with Chlorhexidine-based prep solution allowing over 3 minutes for prep solution drying time prior to draping. Preoperative time out was performed confirming side and patients surgery. I began by making a standard lateral incision centered over proximal femur. This was slightly posteriorly. I carried the dissection down through skin and subcutaneous tissue, achieving meticulous hemostasis. I incised the tensor fascia kevin in line with skin incision. I sharply released the abductors off the greater trochanter. I made T-shaped capsulotomy and marked each limb with #1 Vicryl suture. I made the neck cut approximately 1 cm above the level of the lesser trochanter. I used a corkscrew device to remove the femoral head. This sized to 53 mm using the [employer] cemented hip hemiarthroplasty system. I then used the box osteotome and lateralizing and canal-finding reamers to ream the canal. I sequentially broached up to size 7. I used the planing device. I then trialed with minus 3 mm and +0 mm offset head and neck taper with size 7 femoral stem and 53 size head. This was appropriate at the 0 offset. No impingement, no instability in external rotation and extension or flexion and internal rotation. Femoral components were removed. Canal was thoroughly irrigated using pulse lavage. Cement was mixed using third generation cement mixing techniques including vacuum pressurization including vacuum mixing. Size 3 distal cement restrictor was then placed as well as centralizer at the distal end of the femoral implant. Cement was placed and pressurized. Sponge was placed in the acetabulum. Components placed in appropriate version and cement allowed to fully harden. Sponge was removed from the acetabulum. Trunnion was cleaned using again pulse lavage and final component size 53 head with +0 mm neck shaft taper was then impacted onto the Daniel taper. This was stable and solid. Hip joint was again reduced and stability and impingement checked. Normal shuck test. The hip was thoroughly irrigated. Capsule was closed with #1 Vicryl sutures. Abductors were repaired through bone tunnels using #2 FiberWire suture. Tensor fascia kevin was closed in running fashion with Stratafix suture, subcutaneous tissue was closed with 2-0 Vicryl interrupted and running sutures. Skin was cleaned with wet-to-dry dressing. 20 mL 0.25% Marcaine was instilled in and around the incision site. The skin was cleaned with wet-to-dry dressing followed by application of Prineo wound care management dressing. This was allowed to fully dry. The patient was awoken from general anesthesia, transferred off the operating room table and taken to postanesthesia care unit in stable condition. All sponge, instrument and needle counts correct. Estimated blood loss 100 mL. PLAN: She is to be weightbearing as tolerated. [facility] AP radiographs of the hip taken in postanesthesia care unit. PT/OT for transfer safety and mobilization for discharge home. I will continue on antibiotics two doses postoperatively as well as [id number] mg PO once daily for the next 35 days for DVT prophylaxis. Follow up in the office in 2 weeks time. They can shower over top of the incision but keep it clean and dry and trim the edges as needed. The conventions assistant Christiano Sarah was instrumental in achieving visualization, holding retractors and helping with the reduction maneuvers. STEPHAN
[2020-08-07] MEDS: PERCOCET 5MG/325MG TAB PO PRN (12:57)
--- NOTE | 2020-08-07 13:12 | IPNPDOC ---
Date Seen The patient was seen on 08/07/20. Progress Note SUBJECTIVE: patient was seen and examined at bedside. Doing well. Febrile overnight Tmax 100.6. Denies subjective fevers/chills, denies cough, denies dysuria. No diarrhea. denies chest pain, shortness of breath, palpitations. No pain at the L hip operative site. OBJECTIVE PHYSICAL EXAMINATION: VITAL SIGNS: Please see below. GENERAL: appears well, non toxic, comfortable sitting in bed HEENT: PERRLA, EOMI, mucous membranes moist CARDIOVASCULAR: RRR, normal S1, S2, no rub, no gallop. RESPIRATORY: lungs CTAB, no wheeze, no rales, no crackles. ABDOMINAL: soft, non tender, BS+, non distended abdo EXTREMITIES: no edema MSK: L hip incision non tender to touch, no drainage, no surrounding cellulitis NEUROLOGICAL: no focal deficits, moving all 4 limbs PSYCHOLOGICAL: CIWA 0, no tremulousness, no anxiety LABORATORY DATA, IMAGING STUDIES, MICROBIOLOGY: Please see below. DVT prophylaxis ordered?: xarelto ASSESSMENT/PLAN 64-year-old male history of hypertension is brought to the emergency department because he was intoxicated and tripped and fell on his hip on the sidewalk. Hip pelvis x-ray in the ED shows left femoral neck fracture. Mr. Buckner is a 64 yo M with a PMHx of HTN, etoh abuse disorder, presente to [facility] ED with L hip pain after a fall while intoxicated. Hip pelvis xray in the ED showed a L femoral neck fracture. He underwent an ORIF on 08/02/[address] Pepper. He is doing well post-operatively and has been cleared by PT as safe for home DC with services. # Left femoral neck fracture: s/p ORIF 08/02/20. Pain control. PT for home with services. # Post-op fever: febrile overnight, Tmax 100.6 on 08/06/20 at 2200. No WBC. No cellulitis/drainage at operative site. CXR normal. UA without evidence for infection. Obtain blood cultures x 2. # Hyponatremia: in setting of copious beer consumption. Improving. Na 133. # Hypokalemia: replaced. # ETOH abuse disorder: ativan prn. Olanzepine prn. Serax. CIWA protocol. Thiamine. Folic acid. MVI. Fall and seizure precautions. #HTN: amlodipine started # Smoking: nitocine patch. Smoking cessation counseling provided. # DVT prophylaxis: xarelto Dispo: per PT safe to DC home with services. Commode. POLLARD. Follow up in orthopedics clinic in 2 weeks. VS, I&O, 24H, Fishbone Vital Signs/I&O Vital Signs Date Time Temp Pulse Resp B/P (MAP) Pulse Ox O2 Delivery O2 Flow Rate FiO2 08/07/20 12:57 18 08/07/20 08:14 76 166/80 08/07/20 06:00 97.9 97 Room Air 08/03/20 09:00 2.0 I&O- Last 24 Hours up to 6 AM 08/07/20 06:00 Intake Total 2200 ml Balance 2200 ml Laboratory Data 24H LABS Laboratory Tests 2 08/07/20 06:02: Immature Granulocyte % (Auto) 0.7, Neutrophils (%) (Auto) 71.4H, Lymphocytes (%) (Auto) 15.3L, Monocytes (%) (Auto) 10.5H, Eosinophils (%) (Auto) 1.6, Basophils (%) (Auto) 0.5, Neutrophils # (Auto) 3.1, Lymphocytes # (Auto) 0.7L, Monocytes # (Auto) 0.5, Eosinophils # (Auto) 0.1, Basophils # (Auto) 0.0, Nucleated Red Blood Cells % (auto) 0.0, Anion Gap 6L, Glomerular Filtration Rate > 60.0, Calcium Level 8.0L 08/07/20 12:14: Urine Color STEVIE, Urine Appearance HAZY, Urine pH 6.0, Urine Specific [place] 1.015, Urine Protein NEGATIVE, Urine Glucose (UA) NEGATIVE, Urine Ketones NEGATIVE, Urine Blood NEGATIVE, Urine Nitrite NEGATIVE, Urine Bilirubin NEGATIVE, Urine Urobilinogen 2.0H, Urine Leukocyte Esterase NEGATIVE, Urine WBC (Auto) 0, Urine RBC (Auto) 2, Urine Hyaline Casts (Auto) 0, Urine Bacteria (Auto) NEGATIVE, Urine Squamous Epithelial Cells 0, Urine Mucus (Auto) SMALL, Urine Sperm (Auto) CBC/BMP Laboratory Tests 08/07/20 06:02 DENNIS MAHAJAN MD Aug 07, 2020 13:11
[2020-08-07 14:00] VITALS: BP 94/62
[2020-08-07] MEDS: RIVAROXABAN 10 MG TAB (XARELTO) PO SCH (17:34)
[2020-08-07] MEDS: OXAZEPAM 15 MG CAP PO SCH (20:08)
[2020-08-07 22:00] VITALS: BP 131/70
[2020-08-08] MEDS: ACETAMINOPHEN TAB 650MG DOSE (2X325MG) PO PRN ×2 (05:45→13:56)
[2020-08-08 06:00] VITALS: BP 155/81
[2020-08-08 06:16] LABS: BASO % 0.6 % (0.0-1.0); EOS # 0.1 10^3/uL (0.0-0.5); EOS % 2.3 % (0.0-3.0); HEMATOCRIT 25.8 % (42.0-52.0); HEMOGLOBIN 8.7 g/dl (13.5-17.5); LYMPH # 0.6 10^3/uL (1.5-5.0); LYMPH % 17.3 % (24.0-44.0); MEAN CORPUSCULAR HEMOGLOBIN 33.3 pg (27.0-33.0); MEAN CORPUSCULAR HGB CONC 33.7 g/dl (32.0-36.5); MEAN CORPUSCULAR VOLUME 98.9 fl (80.0-96.0); MONO # 0.6 10^3/uL (0.0-0.8); MONO % 16.1 % (0.0-5.0); NEUTROPHILS # 2.2 10^3/uL (1.5-8.5); NEUTROPHILS % 63.4 % (36.0-66.0); PLATELET COUNT, AUTOMATED 192 10^3/uL (150-450); RED BLOOD COUNT 2.61 10^6/uL (4.30-6.10); WHITE BLOOD COUNT 3.4 10^3/uL (4.0-10.0)
[2020-08-08 06:40] LABS: BLOOD UREA NITROGEN 10 MG/DL (7-18); CALCIUM LEVEL 8.3 MG/DL (8.8-10.2); CARBON DIOXIDE LEVEL 28 MEQ/L (21-32); CHLORIDE LEVEL 104 MEQ/L (98-107); GLOMERULAR FILTRATION RATE > 60.0 (>49); GLUCOSE, FASTING 98 MG/DL (70-100); POTASSIUM SERUM 3.5 MEQ/L (3.5-5.1); SODIUM LEVEL 137 MEQ/L (136-145)
[2020-08-08 08:17] VITALS: BP 155/81
[2020-08-08] MEDS: PERCOCET 5MG/325MG TAB PO PRN (08:17)
[2020-08-08] MEDS: amLODIPine 5 MG TAB PO SCH (08:17)
[2020-08-08] MEDS: MULTIVITAMINS/MINERALS THERAP 1 TAB PO SCH (08:17)
[2020-08-08] MEDS: FOLIC ACID 1 MG TAB PO SCH (08:17)
[2020-08-08] MEDS: MAGNESIUM OXIDE 400 MG TAB (MAG-OX) PO SCH (08:17)
[2020-08-08] MEDS: MIRALAX *UNIT DOSE* 17GM PACKET PO SCH (08:18)
[2020-08-08] MEDS: NICOTINE 14 MG/24 HR TRANSDERMAL TD SCH (08:18)
[2020-08-08] MEDS ORDERED: MAG400TA PO (09:48)
[2020-08-08] MEDS ORDERED: OXAZ15CA4 PO (09:48)
[2020-08-08] MEDS ORDERED: PEG1POW PO (09:48)
[2020-08-08] MEDS ORDERED: VITMTA PO (09:48)
[2020-08-08] MEDS ORDERED: FOLI1TAB11 PO (09:48)
[2020-08-08] MEDS ORDERED: AMLO1TAB24 PO (09:48)
[2020-08-08] MEDS ORDERED: NICO14PA TD (09:48)
--- NOTE | 2020-08-08 09:56 | DS.PDOC ---
Discharge Summary General Date of Admission Aug 01, 2020 at 23:15 Date of Discharge 08/07/20 Attending Physician: DENNIS MAHAJAN MD Discharge Summary PROCEDURES PERFORMED DURING STAY: [None]. ADMITTING DIAGNOSES: L femoral neck fracture hyponatreamia hypokalemia etoh use disorder HTN smoker DISCHARGE DIAGNOSES: L femoral neck fracture post op fever hyponatreamia hypokalemia etoh use disorder HTN smoker COMPLICATIONS/CHIEF COMPLAINT: Femoral Neck Fracture. HISTORY OF PRESENT ILLNESS: 64-year-old male history of hypertension is brought to the emergency department because he was intoxicated and tripped and fell on his hip on the sidewalk. Hip pelvis x-ray in the ED shows left femoral neck fracture. Dr. Pepper orthopedics vascular surgeon today was consulted and plans to take him to the OR in the morning. Patient states he is in 5 out of 10 discomfort around his left hip. Denies any pain elsewhere. Patient was seen in the ED he appeared to still be intoxicated and answered some questions but fairly poorly. He did tell me he has hypertension but denied any other past medical problems and states he doesn't take any medications nor follow-up with a primary care doctor. He states he drinks alcohol every other day and sometimes a pack or 2 at a time. He states he gets the shakes when he stops drinking but has never been brought to the hospital because of alcohol withdrawal. HOSPITAL COURSE: 4-year-old male history of hypertension is brought to the emergency department because he was intoxicated and tripped and fell on his hip on the sidewalk. Hip pelvis x-ray in the ED shows left femoral neck fracture. Mr. Buckner is a 64 yo M with a PMHx of HTN, etoh abuse disorder, presented to [facility] ED with L hip pain after a fall while intoxicated. Hip pelvis xray in the ED showed a L femoral neck fracture. He underwent an ORIF on 08/02/[address] Pepper. He is doing well post-operatively and has been cleared by PT as safe for home DC with services. # Left femoral neck fracture: s/p ORIF 08/02/20. Pain control. PT for home with services. # Post-op fever: febrile overnight, Tmax 100.6 on 08/06/20 at 2200. No WBC. No cellulitis/drainage at operative site. CXR normal. UA without evidence for infection. Obtain blood cultures x 2 prelim negative # Hyponatremia: in setting of copious beer consumption. Improving. Na 133. # Hypokalemia: replaced. # ETOH abuse disorder: ativan prn. Olanzepine prn. Serax. CIWA protocol. Thiamine. Folic acid. MVI. Fall and seizure precautions. #HTN: amlodipine started # Smoking: nitocine patch. Smoking cessation counseling provided. # DVT prophylaxis: xarelto Dispo: per PT safe to DC home with services. Commode. RW. Follow up in orthopedics clinic in 2 weeks. DISCHARGE MEDICATIONS: Please see below. ALLERGIES: Please see below. PHYSICAL EXAMINATION ON DISCHARGE: VITAL SIGNS: Please see below. GENERAL: appears well, non toxic, comfortable sitting in bed HEENT: PERRLA, EOMI, mucous membranes moist CARDIOVASCULAR: RRR, normal S1, S2, no rub, no gallop. RESPIRATORY: lungs CTAB, no wheeze, no rales, no crackles. ABDOMINAL: soft, non tender, BS+, non distended abdo EXTREMITIES: no edema MSK: L hip incision non tender to touch, no drainage, no surrounding cellulitis NEUROLOGICAL: no focal deficits, moving all 4 limbs PSYCHOLOGICAL: CIWA 0, no tremulousness, no anxiety LABORATORY DATA: Please see below. IMAGING: XR L hip (08/01/20) Acute fracture of the left femoral neck XR L hip (08/02/20) AP and cross-table lateral views of the left hip demonstrate left hip hemiarthroplasty in good position. Periarticular soft tissue emphysema is seen. PROGNOSIS: good ACTIVITY: [As tolerated]. DIET: 2g Na DISCHARGE PLAN: home with services, ortho f/u DISPOSITION: home DISCHARGE INSTRUCTIONS: 1. f/u PCP 3-5 days 2. f/ with Dr. Pepper 08/20/ at 1 am 3. Ambulate with Walker. 4. take oxazepam for 3 days to prevent withdrawal, DO not consume alcohol at the same time 5. if you develop fevers, chills, chest pain, shortness of breath or otherwise worsening of your symptoms, please call 911 or return to the nearest emergency room. DISCHARGE CONDITION: Stable TIME SPENT ON DISCHARGE: Greater than 30 minutes. Vital Signs/I&Os Vital Signs Date Time Temp Pulse Resp B/P (MAP) Pulse Ox O2 Delivery O2 Flow Rate FiO2 08/08/20 08:47 20 08/08/20 08:17 87 155/81 08/08/20 06:00 99.6 99 Room Air 08/03/20 09:00 2.0 I&O- Last 24 Hours up to 6 AM 08/08/20 06:00 Intake Total 2340 ml Output Total 1000 ml Balance 1340 ml Laboratory Data Labs 24H Laboratory Tests 2 08/07/20 12:14: Urine Color STEVIE, Urine Appearance HAZY, Urine pH 6.0, Urine Specific [place] 1.015, Urine Protein NEGATIVE, Urine Glucose (UA) NEGATIVE, Urine Ketones NEGATIVE, Urine Blood NEGATIVE, Urine Nitrite NEGATIVE, Urine Bilirubin NE GATIVE, Urine Urobilinogen 2.0H, Urine Leukocyte Esterase NEGATIVE, Urine WBC (Auto) 0, Urine RBC (Auto) 2, Urine Hyaline Casts (Auto) 0, Urine Bacteria (Auto) NEGATIVE, Urine Squamous Epithelial Cells 0, Urine Mucus (Auto) SMALL, Urine Sperm (Auto) 08/08/20 05:49: Immature Granulocyte % (Auto) 0.3, Neutrophils (%) (Auto) 63.4, Lymphocytes (%) (Auto) 17.3L, Monocytes (%) (Auto) 16.1H, Eosinophils (%) (Auto) 2.3, Basophils (%) (Auto) 0.6, Neutrophils # (Auto) 2.2, Lymphocytes # (Auto) 0.6L, Monocytes # (Auto) 0.6, Eosinophils # (Auto) 0.1, Basophils # (Auto) 0.0, Nucleated Red Blood Cells % (auto) 0.0, Anion Gap 5L, Glomerular Filtration Rate > 60.0, Calcium Level 8.3L CBC/BMP Laboratory Tests 08/08/20 05:49 Microbiology Microbiology 08/07/20 Blood Culture, Received Pending Discharge Medications Scheduled Amlodipine Besylate (Amlodipine Besylate) 5 Mg Tablet, 5 MG PO DAILY Folic Acid (Folic Acid) 1 Mg Tablet, 1 MG PO DAILY Magnesium Oxide (Magnesium Oxide) 400 Mg Tablet, 400 MG PO DAILY Multivitamins (Thera M Plus Tablet) 1 Each Tablet, 1 TAB PO DAILY Nicotine (Nicotine Patch) 14 Mg Patch.td24, 1 PATCH TD DAILY Oxazepam (Oxazepam) 15 Mg Capsule, 15 MG PO QHS Rivaroxaban (Xarelto) 10 Mg Tablet, 10 MG PO DAILY Scheduled PRN Oxycodone HCl/Acetaminophen (Percocet 5-325 mg Tablet) 1 Each Tablet, 1 TAB PO Q4H PRN for PAIN Polyethylene Glycol 3350 (Polyethylene Glycol 3350) 17 Gm Powd.pack, 1 PKT PO DAILY PRN for CONSTIPATION Allergies Coded Allergies: No Known Allergies (Unverified , 06/02/18) DENNIS MAHAJAN MD Aug 08, 2020 09:56
[2020-08-08 14:00] VITALS: BP 144/72
--- NOTE | 2020-08-09 09:28 | REP ---
CHEST X-RAY: 2-VIEWS (REPEAT DICTATION) HISTORY: Cough and fever. Preliminary report is provided at the time of the exam by [facility]. FINDINGS: Frontal and lateral views of the chest are compared with a prior chest x-ray from 08/01/2020. The lungs remain hyperinflated. No infiltrate is seen. Pleural angles are sharp. Heart size is normal. Pulmonary vasculature is not increased. No significant bony abnormality is seen. IMPRESSION: Hyperinflation. Otherwise no acute disease. MTDD
--- NOTE | 2020-08-09 16:05 | REP ---
CHEST X-RAY: TWO VIEWS HISTORY: Fever. COMPARISON CHEST X-RAY: August 05, 2020. FINDINGS: The lungs are well inflated and free of infiltrate. Pleural angles are sharp. Heart is not enlarged. Pulmonary vasculature is not increased. No bony abnormality is appreciated. The lungs are somewhat hyperinflated overall consistent with some degree of COPD. IMPRESSION: Hyperinflation. Otherwise no acute disease. No infiltrate seen. MTDD
== END 2020-08-08 16:55 | disposition home health service (06) | DRG 301 ==
LOC: M ED 20:43 → M ED INP 23:15 → ENRESERV 08-02 12:14 → M MS5PR 08-02 12:55
PROVIDERS: ADMIT Family Medicine; ATTEND Family Medicine
PROC: 0SRS0J9 Replacement of Left Hip Joint, Femoral Surface with Synthetic Substitute, Cemented, Open Approach (ICD-10-PCS; principal; 2020-08-02 17:30)
DX: S72.002A Fracture of unspecified part of neck of left femur, initial encounter for closed fracture (principal); E87.1 Hypo-osmolality and hyponatremia; I10 Essential (primary) hypertension; F10.229 Alcohol dependence with intoxication, unspecified; Z79.899 Other long term (current) drug therapy; W18.09XA Striking against other object with subsequent fall, initial encounter; Y92.009 Unspecified place in unspecified non-institutional (private) residence as the place of occurrence of the external cause; F17.200 Nicotine dependence, unspecified, uncomplicated; E87.6 Hypokalemia

== ENCOUNTER 2024-08-16 09:29 | Emergency (ER) | payer OTHER, MEDICAID ==
[~2024-08-16] VITALS: Ht 177.8 cm; Wt 76.5 kg
[~2024-08-16 09:29] MED LIST changes: +AMLO1TAB24 PO; +FOLI1TAB11 PO; +MAGN400T35 PO; +NICO14PA TD; +OXAZ15CA4 PO; +PERC5TAB12 PO; +POLY17PO18 PO; +VITMTA PO; +XARE10TA PO
[2024-08-16] MEDS: DOCUSATE SOD LIQ 100MG/10ML UDC XX ONE (10:30)
[2024-08-16 11:37] VITALS: TEMP 97.6; O2SAT 98
[2024-08-16 12:11] VITALS: BP 180/110
[2024-08-16] MEDS: amLODIPine 5 MG TAB PO ONE (12:11)
[2024-08-16] MEDS ORDERED: AMLO1TAB24 PO (12:19)
[2024-08-16 12:52] VITALS: BP 194/100
== END 2024-08-16 12:59 | disposition left against medical advice (07) ==
LOC: M ED 09:29
DX: H61.23 Impacted cerumen, bilateral (principal); I10 Essential (primary) hypertension; F17.200 Nicotine dependence, unspecified, uncomplicated; F10.10 Alcohol abuse, uncomplicated; Z79.899 Other long term (current) drug therapy

== ENCOUNTER → 2024-12-09 | Outpatient (REF) | payer OTHER, MEDICAID ==
[2024-12-09 14:57] LABS: VITAMIN B12 LEVEL 383 PG/ML (211-911)
[2024-12-09 14:58] LABS: TOTAL 25(OH) VITAMIN D 10.4 NG/ML (20.0-100.0)
[2024-12-09 15:00] LABS: ALBUMIN 4.1 G/DL (3.2-5.2); ALKALINE PHOSPHATASE 79 U/L (40-129); ALT/SGPT 90 U/L (7.0-40); AST/SGOT 69 U/L (<34); BILIRUBIN,TOTAL 0.5 MG/DL (0.3-1.2); BLOOD UREA NITROGEN 6 MG/DL (9-23); CALCIUM LEVEL 9.2 MG/DL (8.3-10.6); CARBON DIOXIDE LEVEL 26 MMOL/L (20-31); CHLORIDE LEVEL 97 MMOL/L (98-107); CHOLESTEROL LEVEL 119 MG/DL (<200); CHOLESTEROL RISK RATIO 1.86 (<5); CREATININE FOR GFR 0.75 MG/DL (0.70-1.30); GLOMERULAR FILTRATION RATE > 60.0 (>49); GLUCOSE, FASTING 92 MG/DL (74-106); HDL CHOLESTEROL 63.7 MG/DL (>40); LDL CHOLESTEROL 44.5 MG/DL (<100); NON-HDL-C 55.3 MG/DL; POTASSIUM SERUM 4.2 MMOL/L (3.5-5.1); SODIUM LEVEL 133 MMOL/L (136-145); TOTAL PROTEIN 7.8 G/DL (5.7-8.2); TRIGLYCERIDES LEVEL 54 MG/DL (<150)
[2024-12-09 15:16] LABS: HEMOGLOBIN A1c 4.9 % (4.0-6.0)
[2024-12-09 15:22] LABS: HIV 1&2 SCREEN NEGATIVE (NEGATIVE)
[2024-12-09 15:30] LABS: FOLATE 11.7 NG/ML (>5.4); HEPATITIS C VIRUS ABY INDEX 0.14 INDEX (<0.8)
[2024-12-09 15:43] LABS: APPEARANCE, URINE CLEAR (CLEAR); BACTERIA, URINE AUTO NEGATIVE (NEGATIVE); BILIRUBIN, URINE AUTO NEGATIVE (NEGATIVE); BLOOD, URINE BLOOD NEGATIVE (NEGATIVE); COLOR, URINE STRAW (YELLOW); GLUCOSE, URINE (UA) AUTO NEGATIVE (NEGATIVE); KETONE, URINE AUTO NEGATIVE (NEGATIVE); LEUKOCYTE ESTERASE, URINE AUTO NEGATIVE (NEGATIVE); NITRITE, URINE AUTO NEGATIVE (NEGATIVE); PROTEIN, URINE AUTO NEGATIVE (NEGATIVE); RBC, URINE AUTO 0 /HPF (0-3); SPECIFIC GRAVITY URINE AUTO 1.003 (1.002-1.035); SQUAMOUS EPITHELIAL CELL UR AU 0 /HPF (0-6); UROBILINOGEN, URINE AUTO 0.2 mg/dL (0.0-2.0); WBC, URINE AUTO 0 /HPF (0-3)
[2024-12-09 16:04] LABS: CREATININE, URINE 21.2 MG/DL
[2024-12-09 16:05] LABS: MALB URINE SIEMENS < 3.0 MG/L
== END ==
LOC: M LAB REF 13:08
PROVIDERS: ATTEND Physician Assistant
DX: I10 Essential (primary) hypertension (principal); F10.10 Alcohol abuse, uncomplicated; Z11.9 Encounter for screening for infectious and parasitic diseases, unspecified; E55.9 Vitamin D deficiency, unspecified

== ENCOUNTER 2024-12-17 08:10 | Inpatient (IN) | payer OTHER, MEDICAID ==
[~2024-12-17] VITALS: Ht 177.8 cm; Wt 79.5 kg
[2024-12-17] MEDS: TIOTROPIUM INHALER/CAPSULE (SPIRIVA) INH SCH (08:00)
[2024-12-17] MEDS: IPRATROPIUM 0.5MG/ALBUTEROL 2.5MG INH SOL UD 3ML (DUONEB) NEB PRN (08:41)
[2024-12-17 08:52] LABS: VENOUS BASE EXCESS 1.8 (-2.0-2.0); VENOUS HCO3 26.2 MMOL/L (23.0-27.0); VENOUS O2 SATURATION 54.8 % (60.0-80.0); VENOUS PARTIAL PRESSURE CO2 40.3 mmHg (38.0-50.0); VENOUS PARTIAL PRESSURE O2 29.9 mmHg (30.0-50.0); VENOUS PH 7.431 UNITS (7.330-7.430); VENOUS TOTAL CO2 27.4 MMOL/L (24.0-28.0)
[2024-12-17] MEDS: methylPREDNISolone 125MG 2ML VIAL IV ONE (08:52)
[2024-12-17 09:04] LABS: BASO % 0.4 % (0.0-1.0); EOS # 0.1 10^3/uL (0.0-0.5); HEMATOCRIT 39.6 % (42.0-52.0); HEMOGLOBIN 13.8 g/dl (13.5-17.5); LYMPH # 0.7 10^3/uL (1.5-5.0); LYMPH % 8.2 % (24.0-44.0); MEAN CORPUSCULAR HEMOGLOBIN 33.7 pg (27.0-33.0); MEAN CORPUSCULAR HGB CONC 34.8 g/dl (32.0-36.5); MEAN CORPUSCULAR VOLUME 96.8 fl (80.0-96.0); MONO # 0.8 10^3/uL (0.0-0.8); NEUTROPHILS # 6.4 10^3/uL (1.5-8.5); NEUTROPHILS % 79.5 % (36.0-66.0); PLATELET COUNT, AUTOMATED 230 10^3/uL (150-450); RED BLOOD COUNT 4.09 10^6/uL (4.30-6.10)
[2024-12-17 09:31] LABS: ALBUMIN 2.8 G/DL (3.2-5.2); ALKALINE PHOSPHATASE 69 U/L (40-129); ALT/SGPT 71 U/L (7.0-40); AST/SGOT 45 U/L (<34); BILIRUBIN,DIRECT 0.3 MG/DL (<0.4); BILIRUBIN,TOTAL 0.6 MG/DL (0.3-1.2); BLOOD UREA NITROGEN 11 MG/DL (9-23); CALCIUM LEVEL 8.8 MG/DL (8.3-10.6); CARBON DIOXIDE LEVEL 29 MMOL/L (20-31); CHLORIDE LEVEL 97 MMOL/L (98-107); CREATININE FOR GFR 0.68 MG/DL (0.70-1.30); GLOMERULAR FILTRATION RATE > 60.0 (>49); GLUCOSE, FASTING 126 MG/DL (74-106); POTASSIUM SERUM 3.2 MMOL/L (3.5-5.1); SODIUM LEVEL 134 MMOL/L (136-145); TOTAL PROTEIN 7.2 G/DL (5.7-8.2)
[2024-12-17 09:33] LABS: THYROID STIMULATING HORMONE 0.253 uIU/ML (0.55-4.78)
[2024-12-17] MEDS: POTASSIUM CHLORIDE 10MEQ SR TABLET PO ONE (11:09)
[2024-12-17] MEDS ORDERED: MOM 30ML SUSPENSION UDC PO PRN (12:30)
[2024-12-17] MEDS ORDERED: LORazepam 2 MG TAB PO PRN (12:40)
[2024-12-17] MEDS ORDERED: AMLO1TAB24 PO (12:42)
[2024-12-17] MEDS ORDERED: HOME MED LIST COMPLETE! XX SCH (12:45)
[2024-12-17] MEDS: THIAMINE 100 MG TAB PO SCH (13:01)
[2024-12-17] MEDS: AZITHROMYCIN 250MG TABLET PO SCH (13:01)
[2024-12-17] MEDS: FOLIC ACID 1MG TAB PO SCH (13:01)
[2024-12-17] MEDS: MULTIVITAMINS/MINERALS THERAP 1 TAB PO SCH (13:01)
[2024-12-17] MEDS: NICOTINE 14 MG/24 HR TRANSDERMAL TD SCH (13:02)
[2024-12-17 14:28] LABS: FREE T4 1.75 NG/DL (0.89-1.76)
[2024-12-17] MEDS: COMBIVENT RESPIMAT 100-20MCG INHALER 4GM INH SCH (14:33)
[2024-12-17 15:25] LABS: INR 1.08; PARTIAL THROMBOPLASTIN TIME 29.6 SECONDS (24.8-34.2); PROTHROMBIN TIME 14.3 SECONDS (12.5-14.5)
[2024-12-17] MEDS: ACETAMINOPHEN 325 MG TAB PO PRN (16:29)
[2024-12-17 16:57] VITALS: BP 188/121; TEMP 97.7; O2SAT 95
[2024-12-17] MEDS: methylPREDNISolone 125MG 2ML VIAL IV SCH (17:18)
[2024-12-17 18:00] VITALS: BP_SYST 170; BP_SYST 171; BP_DIAS 90; BP_DIAS 91; O2SAT 90
[2024-12-17 20:11] VITALS: BP 189/95; TEMP 97.7; O2SAT 90
[2024-12-17 20:13] VITALS: BP 160/91
[2024-12-17] MEDS: DOCUSATE SODIUM 100MG CAPSULE PO SCH (20:18)
[2024-12-17 22:31] VITALS: BP 160/91
[2024-12-18] VITALS (8 sets, daily range): BP systolic 166–192; BP diastolic 88–94; TEMP 97.2–98.4; O2SAT 30–91
[2024-12-18 06:39] LABS: ALBUMIN 2.7 G/DL (3.2-5.2); ALKALINE PHOSPHATASE 62 U/L (40-129); ALT/SGPT 69 U/L (7.0-40); AST/SGOT 52 U/L (<34); BILIRUBIN,TOTAL 0.5 MG/DL (0.3-1.2); BLOOD UREA NITROGEN 13 MG/DL (9-23); CALCIUM LEVEL 9.1 MG/DL (8.3-10.6); CARBON DIOXIDE LEVEL 26 MMOL/L (20-31); CHLORIDE LEVEL 100 MMOL/L (98-107); CREATININE FOR GFR 0.54 MG/DL (0.70-1.30); GLOMERULAR FILTRATION RATE > 60.0 (>49); GLUCOSE, FASTING 133 MG/DL (74-106); POTASSIUM SERUM 4.4 MMOL/L (3.5-5.1); SODIUM LEVEL 135 MMOL/L (136-145); TOTAL PROTEIN 7.2 G/DL (5.7-8.2)
[2024-12-18] MEDS: RIVAROXABAN 10MG TAB (XARELTO) PO SCH (08:09)
[2024-12-18] MEDS: amLODIPine 5 MG TAB PO ONE (22:23)
[2024-12-19] VITALS (7 sets, daily range): BP systolic 151–190; BP diastolic 80–99; TEMP 98.1; O2SAT 86–91
[2024-12-19] MEDS ORDERED: PILL CUTTER 1 EACH XX PRN (00:05)
[2024-12-19] MEDS: **hydrALAZINE HCL** 25 MG TAB PO ONE (00:09)
[2024-12-19] MEDS: IPRATROPIUM 0.5MG/ALBUTEROL 2.5MG INH SOL UD 3ML (DUONEB) NEB ONE (04:07)
[2024-12-19] MEDS ORDERED: ISOVUE-370 76% 100ML VIAL As Ordered ONE (07:05)
[2024-12-19 08:06] LABS: C REACTIVE PROTEIN QUANTITATIV 2.72 MG/DL (<1.0)
[2024-12-19 08:14] LABS: PROCALCITONIN 0.09 ng/ml
[2024-12-19] MEDS ORDERED: AZITHROMYCIN 250MG TABLET PO ONE (11:30)
[2024-12-19] MEDS: cefTRIAXone SOD 1 GM in DEXTROSE 5% (D5W) ADV/MINI-BAG 50 ML IV SCH (12:19)
[2024-12-19] MEDS: amLODIPine 5 MG TAB PO SCH (15:55)
[2024-12-19] MEDS: predniSONE 20 MG TAB PO SCH (19:53)
[2024-12-20] VITALS (8 sets, daily range): BP systolic 155–167; BP diastolic 82–96; TEMP 98.1–98.2; O2SAT 91–94
[2024-12-20] MEDS: AZITHROMYCIN 250MG TABLET PO SCH (08:20)
[2024-12-20] MEDS ORDERED: VENTAER INH (10:22)
[2024-12-20] MEDS ORDERED: PRED10TA2 PO (10:22)
[2024-12-20] MEDS ORDERED: CEFD1CAP9 PO (10:22)
[2024-12-20] MEDS ORDERED: ANOR1AER PO (10:22)
[2024-12-20] MEDS ORDERED: AZIT500T5 PO (10:22)
== END 2024-12-20 15:59 | disposition home or self-care (01) | DRG 202 ==
LOC: EDBD 08:10 → M ED 08:10 → M ED INP 12:28 → M MSPAV 16:54
PROVIDERS: ADMIT Student in an Organized Health Care Education/Training Program; ATTEND Internal Medicine
DX: J21.1 Acute bronchiolitis due to human metapneumovirus (principal); J15.69 Pneumonia due to other Gram-negative bacteria; J96.11 Chronic respiratory failure with hypoxia; J44.1 Chronic obstructive pulmonary disease with (acute) exacerbation; I10 Essential (primary) hypertension; F17.200 Nicotine dependence, unspecified, uncomplicated; F10.10 Alcohol abuse, uncomplicated; Z96.642 Presence of left artificial hip joint; E05.90 Thyrotoxicosis, unspecified without thyrotoxic crisis or storm

== ENCOUNTER → 2025-08-11 | Outpatient (CLI) | payer MEDICARE, MEDICAID ==
[~2025-08-11] MED LIST changes: +ANOR1AER PO; +AZIT500T5 PO; +CEFD1CAP9 PO; +PRED10TA2 PO; +VENTAER INH
== END ==
LOC: M RAD 09:22
PROVIDERS: ATTEND Physician Assistant
DX: R05.8 Other specified cough (principal); R91.8 Other nonspecific abnormal finding of lung field